=== PATIENT | female | born 1960 | race Caucasian/White ===

== ENCOUNTER → 2018-05-31 | Outpatient (CLI) | payer MEDICARE ==
[~2018-05-31] MED LIST: ALBU8.5H8 INH; ATOR20TA37 PO; CETI10TA24 PO; CLON0.1T22 PO; CLON0.5T11 PO; CYCL5TAB PO; FLUO10TA PO; FLUT9.9S NAS; GABA600T7 PO; GEMF600T8 PO; GLIM4TAB2 PO; LISI-170 PO; METF500T27 PO; MONT10TA9 PO; SUMA100T4 PO; TRAM50TA2 PO; ZOLP5TAB6 PO
[2018-05-31 10:45] LABS: ALBUMIN 3.5 g/dL (3.4-5.0); ANION GAP 6 mmol/L (5-15); CHLORIDE 107 mmol/L (98-107)
[2018-05-31 10:49] LABS: ALANINE AMINOTRANSFERASE 26 U/L (12-78); ALKALINE PHOSPHATASE 114 U/L (45-117); BILIRUBIN,TOTAL 0.1 mg/dL (0.2-1.0); CREATININE 0.97 mg/dL (0.55-1.02); TOTAL PROTEIN 7.2 g/dL (6.4-8.2)
== END | disposition home or self-care (01) ==
LOC: STAR 09:13
PROVIDERS: ATTEND Surgery
DX: Z01.818 Encounter for other preprocedural examination (principal); T85.9XXD Unspecified complication of internal prosthetic device, implant and graft, subsequent encounter; R00.0 Tachycardia, unspecified
CPT/HCPCS: 36415; 80053; 93005

== ENCOUNTER 2018-06-07 12:04 | Day surgery (SDC) | payer MEDICARE ==
[~2018-06-07] VITALS: Ht 147.3 cm; Wt 83.0 kg
[2018-06-07] MEDS ORDERED: LACTATED RINGERS 1,000 ML IV SCH (13:16)
[2018-06-07] MEDS ORDERED: FENTANYL PF 250 MCG/5ML ONE (14:15)
[2018-06-07] MEDS ORDERED: MIDAZOLAM 1 MG/ML, 2ML ONE (14:15)
[2018-06-07] MEDS ORDERED: PROPOFOL 10 MG/ML, 20ML ONE (14:17)
[2018-06-07] MEDS ORDERED: ROCURONIUM 10MG/ML,5ML ONE (14:17)
[2018-06-07] MEDS ORDERED: DEXAMETHASONE 4 MG/ML, 1ML ONE ×2 (14:22→16:26)
[2018-06-07] MEDS ORDERED: BUPIVACAINE/PF-EPI 0.5% 1:200K ONE (14:49)
[2018-06-07] MEDS ORDERED: SUCCINYLCHOLINE 20 MG/ML, 10ML ONE (15:44)
[2018-06-07] MEDS ORDERED: CEFAZOLIN 1,000 MG ONE (15:44)
[2018-06-07] MEDS ORDERED: ONDANSETRON 2MG/ML, 2ML ONE ×2 (16:26)
[2018-06-07] MEDS ORDERED: HYDROmorphone 2 MG/ML, 1ML ONE (16:48)
[2018-06-07] MEDS ORDERED: FENTANYL PF 100 MCG/2ML ONE (16:48)
[2018-06-07] MEDS ORDERED: OXYcodone 5 MG/5 ML ORAL.SOL UDC ONE (16:48)
[2018-06-07] MEDS ORDERED: LABETALOL 5MG/ML, 20ML IV PRN (17:00)
[2018-06-07] MEDS ORDERED: PROMETHAZINE 25 MG/ML, 1ML IV PRN (17:00)
[2018-06-07] MEDS ORDERED: OXYcodone 5 MG/5 ML ORAL.SOL UDC PO PRN (17:00)
[2018-06-07] MEDS ORDERED: MIDAZOLAM 1 MG/ML, 2ML IV PRN (17:00)
[2018-06-07] MEDS ORDERED: ACETAMINOPHEN 325 MG TABLET PO PRN (17:00)
[2018-06-07] MEDS ORDERED: MEPERIDINE/PF 25MG/0.5ML IVPush PRN (17:00)
[2018-06-07] MEDS ORDERED: ONDANSETRON 2MG/ML, 2ML IV PRN (17:00)
[2018-06-07] MEDS ORDERED: DIAZEPAM 5 MG/ML, 2ML IVPush PRN (17:00)
[2018-06-07] MEDS ORDERED: PROMETHAZINE 12.5 MG SUPP PR PRN (17:00)
[2018-06-07] MEDS ORDERED: EPHEDRINE 50 MG/ML, 1ML IVPush PRN (17:00)
[2018-06-07] MEDS ORDERED: HYDROmorphone 2 MG/ML, 1ML IVPush PRN (17:00)
[2018-06-07] MEDS ORDERED: ONDANSETRON ODT 8 MG PO PRN (17:00)
[2018-06-07] MEDS ORDERED: ALBUTEROL SULFATE 2.5 MG/3 ML NPPB PRN ×2 (17:00→18:30)
[2018-06-07] MEDS ORDERED: hydrALAzine 20 MG/ML, 1ML IV PRN (17:00)
[2018-06-07] MEDS ORDERED: MORPHINE SULFATE 4 MG/ML, 1ML IVPush PRN (17:00)
[2018-06-07] MEDS ORDERED: FENTANYL PF 100 MCG/2ML IV PRN (17:00)
[2018-06-07] MEDS ORDERED: HALOPERIDOL 5 MG/ML IV PRN (17:00)
[2018-06-07] MEDS ORDERED: SUMATRIPTAN MC SCH (18:30)
[2018-06-07] MEDS ORDERED: FLONASE MC SCH (18:30)
[2018-06-07] MEDS ORDERED: CLONIDINE MC SCH (18:30)
[2018-06-07] MEDS ORDERED: ZOLPIDEM 5MG TABLET PO PRN (18:30)
[2018-06-07] MEDS ORDERED: CETIRIZINE 10 MG TABLET PO PRN (18:30)
[2018-06-07] MEDS ORDERED: TRAMADOL MC SCH (18:30)
[2018-06-07] MEDS ORDERED: CYCLOBENZAPRINE 10 MG TABLET PO SCH (21:00)
[2018-06-07] MEDS ORDERED: ATORVASTATIN 20 MG TABLET PO SCH (21:00)
[2018-06-07] MEDS ORDERED: GEMFIBROZIL 600 MG TABLET PO SCH (21:00)
[2018-06-07] MEDS ORDERED: MONTELUKAST 10 MG TABLET PO SCH (21:00)
[2018-06-08] MEDS ORDERED: metFORMIN XR 500 MG TAB.ER.24H PO SCH (08:00)
[2018-06-08] MEDS ORDERED: GLIMEPIRIDE 4 MG TABLET PO SCH (08:00)
[2018-06-08] MEDS ORDERED: FLUOXETINE 10 MG CAP PO SCH (09:00)
[2018-06-08] MEDS ORDERED: LISINOPRIL 20 MG TABLET PO SCH (09:00)
== END 2018-06-07 19:05 | disposition home or self-care (01) ==
LOC: OUT 12:04 → MERGE 15:30 → 4NOR 17:45 → OUT 19:05
PROVIDERS: ATTEND Surgery
DX: T85.840A Pain due to nervous system prosthetic devices, implants and grafts, initial encounter (principal); G56.43 Causalgia of bilateral upper limbs; Z79.899 Other long term (current) drug therapy; G89.4 Chronic pain syndrome; E11.9 Type 2 diabetes mellitus without complications; I10 Essential (primary) hypertension; F17.210 Nicotine dependence, cigarettes, uncomplicated; Y83.8 Other surgical procedures as the cause of abnormal reaction of the patient, or of later complication, without mention of misadventure at the time of the procedure; Y92.89 Other specified places as the place of occurrence of the external cause
CPT/HCPCS: 63685; 72040; 72072; 76000; 82962; C1767; J0330; J0690; J1100; J1170; J2250; J2405; J2704; J3010; G0378